=== PATIENT | male | born 1960 | race Caucasian/White ===

== ENCOUNTER 2019-05-23 05:44 | Inpatient (IN) | payer MEDICAID ==
[2019-05-23] VITALS (19 sets, daily range): BP systolic 86–125; BP diastolic 53–84
[~2019-05-23] VITALS: Ht 167.6 cm; Wt 100.4 kg
[2019-05-23 06:46] LABS: ABSOLUTE BASOPHILS 0.1 thou/uL (0.0-0.2); ABSOLUTE EOSINOPHILS 0.1 thou/uL (0.0-0.7); ABSOLUTE LYMPHOCYTES 0.8 thou/uL (0.8-5.3); ABSOLUTE MONOCYTES 1.4 thou/uL (0.0-1.2); ABSOLUTE NEUTROPHILS 6.4 thou/uL (1.6-8.1); BASOPHILS 0.6 %; EOSINOPHILS 1.1 %; HEMATOCRIT 35.9 % (42.0-52.0); HEMOGLOBIN 12.4 gm/dL (14.0-18.0); LYMPHOCYTES 8.7 %; MCH 34.2 pg (26.0-34.0); MCHC 34.6 g/dL (28.0-37.0); MCV 98.9 fL (80.0-100.0); MONOCYTES 16.1 %; MPV 9.8 fl. (7.2-11.1); NUCLEATED RBCS 0 /100WBC; POLYS 73.5 %; RBC 3.64 mil/uL (4.50-6.00); RDW-CV 17.2 % (10.5-14.5); WBC 8.7 thou/uL (4.0-11.0)
[2019-05-23 06:58] LABS: CREATININE 4.1 mg/dL (0.6-1.3); POTASSIUM 5.5 mmol/L (3.5-5.1)
[2019-05-23 07:01] LABS: URINE BILIRUBIN NEGATIVE (Negative); URINE BLOOD TRACE (Negative); URINE CLARITY CLEAR; URINE COLOR YELLOW; URINE GLUCOSE-RANDOM NEGATIVE (Negative); URINE KETONES TRACE (Negative); URINE LEUKOCYTES-REFLEX NEGATIVE (Negative); URINE NITRITE-REFLEX NEGATIVE (Negative); URINE PROTEIN NEGATIVE (Negative); URINE SPECIFIC GRAVITY 1.025 (1.005-1.030); URINE UROBILINOGEN 0.2 E.U./dl (0.2-1.0)
[2019-05-23 07:03] LABS: INR 1.4
[2019-05-23 07:09] LABS: TOTAL BILIRUBIN 5.1 mg/dL (<0.1-1.0); TOTAL PROTEIN 7.3 g/dL (6.4-8.2)
[2019-05-23 07:12] LABS: PLATELET ESTIMATE DECREASED
[2019-05-23 07:13] LABS: MACROCYTES 1+; PLATELET COUNT* 78 thou/uL (150-400)
[2019-05-23 07:36] LABS: BE -8.8 mmol/L (-2 to +3); pH 7.477 (7.340-7.450)
[2019-05-23 07:49] LABS: PO2 371.8 mmHg (75.0-100.0)
--- NOTE | 2019-05-23 09:18 | NUR ---
CENTRAL LINE PLACEMENT PERFORMED PER DR ALBARRAN LEFT JUGULAR, STERILE PROCEDURE; CONSENTS SIGNED PRIOR TO PROCEDURE BY DPKAR. CENTRAL LINE INSERTION CHECKLIST COMPLETE
--- NOTE | 2019-05-23 09:35 | NUR ---
RECEIVED NURSING REPORT FROM VIN PARSONS RN AT [address] IN REGARDS TO PT. MEDICATIONS NOT SCANNED IN EMAR VERSED, FENTANYL, SUCCINYLCHOLINE, AND PROPOFOL ARE DOCUMENTED ON STROKE SHEET, REFER TO STROKE SHEET FOR FURTHER DOCUMENTATION
[2019-05-23 09:54] LABS: BE -10.9 mmol/L (-2 to +3); pH 7.443 (7.340-7.450)
[2019-05-23 09:59] LABS: PO2 134.1 mmHg (75.0-100.0)
[2019-05-23] MEDS ORDERED: METFORMIN HCL500 M3 PO (10:26)
[2019-05-23] MEDS ORDERED: FUROSEMIDE 20 M20 MG PO (10:27)
[2019-05-23] MEDS ORDERED: PROTONIX40 M2 PO (10:27)
[2019-05-23] MEDS ORDERED: ONDANSETRON HCL4 M3 PO (10:28)
[2019-05-23] MEDS ORDERED: SPIRONOLACTONE25 MG PO (10:28)
[2019-05-23 11:26] LABS: PCO2 < 17.0 mmHg (35.0-45.0)
[2019-05-23 11:27] LABS: PCO2 < 17.0 mmHg (35.0-45.0)
[2019-05-23 12:34] LABS: CALCIUM 8.2 mg/dL (8.5-10.1); CREATININE 3.8 mg/dL (0.6-1.3); POTASSIUM 4.8 mmol/L (3.5-5.1)
--- NOTE | 2019-05-23 14:00 | NUR ---
PT DOES NOT HAVE COUGH,GAG OR SPONTANEOUS MOVEMENT. SEDATION TURNED OFF,RESTRAINTS REMAIN IN PLACE AT THIS TIME
--- NOTE | 2019-05-23 17:11 | NUR ---
PT RESTING IN BED,REPOSITIONED FREQUENTLY. PT DOES NOT APPEAR TO HAVE COUGH,GAG OR CORNEAL REFLEXES. NO SPONTANEOUS MOVEMENT. SEDATION OFF THIS AFTERNOON. PT ON VENT. TACHYPNEIC. DARK RED DRAINAGE FROM OG. BLEEDING FROM CENTRAL LINE,DRESSING INTACT.BRYANT CATH DRAINING CLEAR YELLOW URINE. EEG THIS AFTERNOON-REPORT DISCUSSED WITH FAMILY. BY DR ALMARAZ. FAMILY SEEMS TO UNDERSTAND SEVERITY OF CONDITION BUT WOULD LIKE TO CONTINUE TREATMENT AND FOR PT TO BE A FULL CODE "TO SEE HOW HE DOES FOR THE NEXT FEW DAYS"
--- NOTE | 2019-05-23 18:07 | NUR ---
INCREASED HR AND LABS DISCUSSED WITH DR HADLEY. ORDERS RECEIVED
[2019-05-23 22:19] LABS: BE -8.6 mmol/L (-2 to +3); PCO2 VENOUS 17.2 mmHg (41.0-51.0); PO2 VENOUS 135.9 mmHg (35.0-45.0)
[2019-05-24] VITALS (25 sets, daily range): BP systolic 89–129; BP diastolic 55–87
[2019-05-24 06:12] LABS: MAGNESIUM 1.8 mg/dL (1.8-2.4)
[2019-05-24 06:16] LABS: ALBUMIN 2.6 g/dL (3.4-5.0); CREATININE 3.9 mg/dL (0.6-1.3); POTASSIUM 5.4 mmol/L (3.5-5.1); TOTAL BILIRUBIN 6.1 mg/dL (<0.1-1.0); TOTAL PROTEIN 6.6 g/dL (6.4-8.2)
[2019-05-24 06:24] LABS: HEMATOCRIT 33.2 % (42.0-52.0); HEMOGLOBIN 11.4 gm/dL (14.0-18.0); MCH 33.5 pg (26.0-34.0); MCHC 34.3 g/dL (28.0-37.0); MCV 97.8 fL (80.0-100.0); MPV 9.7 fl. (7.2-11.1); RBC 3.4 mil/uL (4.50-6.00)
--- NOTE | 2019-05-24 07:00 | NUR ---
Pt making no purposeful movements, not following commands. Eyes open at times, but not tracking movements. Pupils ERRL. Pt moves Rt leg at times, especially when he appears to be fighting ventilator, coughing, or gagging. Pt also moved Rt arm at times later in shift. Not grasping for lines. VSS. Abdomen firm and round. HR 130s. Will continue to monitor.
[2019-05-24 09:02] LABS: APTT 43.3 Seconds (25.0-31.3); INR 1.4
--- NOTE | 2019-05-24 10:12 | CON ---
[address] [address] CONSULTATION Name: TREASUREELISABET Room: [address] IN M.R.#: [id number] Admission: 05/23/19 Attend Phys: Chanda Schaefer MD Discharge: Date of : 64 Report #: [id number] THIS REPORT FOR: //name// cc: MEKA Tee family physician/PCP MEKA - Nay family physician/PCP ~ THIS REPORT FOR: //name// CC: MEKA physician/PCP Chanda Schaefer DATE OF SERVICE: 05/23/2019 REQUESTING PHYSICIAN: Dr. Cobian. REASON FOR CONSULTATION: Chronic kidney disease. HISTORY OF PRESENT ILLNESS: The patient is a 59-year-old male with medical history significant for end-stage liver disease, history of recurrent ascites and weekly paracentesis at [facility], also has history of non-small lung cancer and chronic kidney disease, stage 4, presents to Emergency Room with altered mental status. Code stroke was initiated. The patient had to be intubated in Intensive Care Unit. He was hypotensive. PAST MEDICAL HISTORY: As I mentioned earlier. SOCIAL HISTORY: Unknown. MEDICATIONS: Prior to admission, unknown. REVIEW OF SYSTEMS: Unobtainable secondary to him being intubated. PHYSICAL EXAMINATION: GENERAL: He is intubated. VITAL SIGNS: His blood pressure is 92/62, his heart rate is 111, respiration rate 14, temperature 35.9. HEENT: Pupils are round. NECK: Supple. LUNGS: Decreased air movements. CARDIOVASCULAR: Tachycardia. ABDOMEN: Distended. Ascitic fluid is present. DIAGNOSTIC STUDIES: He had CT scan of abdomen done that revealed patchy consolidation within the posterior and inferior right lower lobe, which may represent atelectasis or pneumonia. Also, has dense consolidation within the dependent left lower lobe. He has large abdominal and pelvic ascites. Liver is atrophic. Kidneys [place] [address] CONSULTATION Name: ELISABET AMANDA Room: [address] IN [facility]#: [id number] Admission: 05/23/19 Attend Phys: Chanda Schaefer MD Discharge: Date of : 64 Report #: [id number] LABORATORY DATA: Revealed hemoglobin of 12.4 and platelet count 78,000. Serum sodium 129, potassium 5.5, chloride 97, carbon dioxide 15, BUN 4.2, creatinine 4.1, and lipase 400. ASSESSMENT: 1. Chronic kidney disease, stage 4. 2. End-stage liver disease. 3. Respiratory failure. 4. Hypertension. 5. Non-small lung cancer. PLAN: Provide support for his blood pressure and give him some fluids, but overall prognosis is very poor. The patient is not a dialysis candidate, and I think the hospice would be optimal care for him. <ELECTRONICALLY SIGNED> By: Jarrett Crespo MD 05/24/19 1012 1114 2110MD yazan Ocampo
--- NOTE | 2019-05-24 11:04 | CON ---
[address] [address] CONSULTATION Name: ELISABET AMANDA Room: [address] ADM IN M.R.#: [id number] Admission: 05/23/19 Attend Phys: Chanda Schaefer MD Discharge: Date of : 64 Report #: [id number] THIS REPORT FOR: //name// cc: MEKA Tee family physician/PCP MEKA - Nay family physician/PCP ~ THIS REPORT FOR: //name// CC: MEKA physician/PCP Chanda Schaefer DATE OF SERVICE: 05/23/2019 HISTORY OF PRESENT ILLNESS: This is a 59-year-old gentleman with past medical history significant for end-stage liver disease secondary to alcoholic cirrhosis, recently diagnosed lung cancer who was brought into the hospital after his daughter found him unconscious with gurgling noises at home. The patient was brought into the ER unconscious and since has been intubated. The GI service has been consulted for evaluation of his altered mental status as well as his history of cirrhosis. Since the patient is currently intubated, most of the history has been obtained from his daughter and records from his previous hospitalization. It appears that the patient was diagnosed with cirrhosis several years back, but has not been following up regularly like he should. We do know that he had been getting weekly paracentesis for his ascites at [facility] and he was also treated at some point for spontaneous bacterial peritonitis. Since his hospitalization, the patient's sedation has been completely turned off and he absolutely has no reflux at this time. The patient was evaluated by Neurology prior to my exam and they did remind that he does not have brainstem reflexes. PAST MEDICAL HISTORY: As mentioned above, end-stage liver disease, lung cancer. PAST SURGICAL HISTORY: None. SOCIAL HISTORY: Remote history of alcohol abuse and smoking. FAMILY HISTORY: No known family history of colon cancer or Plata related neoplasia. LABORATORY DATA: Sodium 131, potassium 4.8, chloride 100, bicarbonate 13, BUN 42, creatinine 3.8. Lactic acid 6.9, hemoglobin 12.4, hematocrit 35.9, platelet count 78, WBC count 8.7. INR 1.4. IMAGING: Abdomen and pelvis CT, this demonstrates large volume abdominal pelvic ascites, cirrhosis, paraesophageal gastric varices, cholelithiasis, and small [place] [address] CONSULTATION Name: AMANDAELISABET Room: [address]#: [id number] Admission: 05/23/19 Attend Phys: Chanda Schaefer MD Discharge: Date of : 64 Report #: [id number] PHYSICAL EXAMINATION: VITAL SIGNS: Blood pressure 95/71, pulse ox 100% on vent, pulse rate 109. GENERAL: The patient is intubated, is not responsive, and does not respond to pain in any way. HEENT: Sclerae are icteric. Small amount of blood being aspirated from the OG tube. SKIN: Icteric. Scattered spider angiomata are seen over the upper extremities. ABDOMEN: Distended and tense with positive fluid thrill and abdominal wall edema. Bowel sounds are present. EXTREMITIES: Also showed 2+ pitting edema. ASSESSMENT AND PLAN: A 59-year-old gentleman with history of cirrhosis complicated by ascites, varices and encephalopathy who was brought in after being found unconscious at home. Per neurology assessment, the patient does not have brainstem reflexes, which places for very poor prognosis over the next couple of days. Additionally, the patient does not have a great long-term prognosis either due to his history of decompensated liver disease as well as lung cancer. His poor prognosis was discussed in detail with family who were present at bedside. They are aware that no intervention can be undertaken at this time that would potentially reverse his medical condition. I would not recommend endoscopy, PPI, or octreotide drips at this time. Since he has no brainstem reflexes, I do not think this is secondary to hepatic encephalopathy, although he may have some component of it as well. However, I do not see any point in giving him lactulose either. The plan is to repeat his neurological examination tomorrow off of sedation for 24 hours and if he remains in the current condition, we will have to discuss goals of care with the family. Family appears to be on board with his current clinical status. Time spent in the Critical Care Unit [id number] with the patient and the patient's family 35 minutes. Thank you for this consultation. <ELECTRONICALLY SIGNED> By: Kian Posada MD 05/24/19 1104 1710 0025Kian Posada MD /nt
[2019-05-24 13:28] LABS: CREATININE 3.8 mg/dL (0.6-1.3); POTASSIUM 5.2 mmol/L (3.5-5.1)
--- NOTE | 2019-05-24 15:26 | NUR ---
FAMILY MADE DECISION TO GO COMFORT CARE. AWAITING DAUGHTER TO CALL BROTHERS TO HAVE THEM COME UP BEFORE EXTUBATING PATIENT. MEDICATIONS ORDERED FOR COMFORT PURPOSES. WILL EXTUBATE ONCE FAMILY IS READY. DTR REQUESTED TO SPEAK WITH DR HADLEY ALSO, CALLED AND HE WILL BE DOWN IN 15 MINS
--- NOTE | 2019-05-24 19:14 | NUR ---
REPORT GIVEN TO RN ON JSSI. PATIENT WILL BE TRANSPORTED TO ROOM 101 AFTER SHIFT REPORT. FAMILY AT BEDSIDE AND NOTIFIED. ALL QUESTIONS ANSWERED. PATIENT RESTING COMFORTABLY AT THIS TIME BUT REMAINS UNRESPONSIVE
[2019-05-25] VITALS: BP 94/76
[2019-05-25 04:00] VITALS: BP 99/62
[2019-05-25 07:58] VITALS: BP 100/55
--- NOTE | 2019-05-25 12:22 | NUR ---
PT.ON COMFORT CARE. SPOKE WITH DAUGHTER,MARILU AND SISTER,ROEL IN WAITING ROOM. ROEL IS GOING TO HAVE TO RETURN TO [place] TOMORROW,WHERE SHE LIVES. MARILU SAID PT.HAD BEEN STAYING WITH HER. HE HAD A GREAT DAY ON 05/22 AND WAS OUT AND ABOUT IN THE COMMUNITY WITH HIS FAMILY. THEN FOUND UNRESPONSIVE AM OF 05/23. THEY DECIDED TO MAKE HIM COMFORT CARE DUE TO HIS LIVER DISEASE AND METASTATIC LUNG DISEASE. DAUGHTER TEARFUL. SHE SAID SHE WILL NOT PUT HIM IN A NSG.HOME. SPOKE ABOUT HOSPICE HOUSES. SHE SAID IF HE DOESN'T PASS SOON, SHE WILL TAKE HIM HOME AND TAKE CARE OF HIM WITH HOSPICE. SHE SAID HER MOM (PTS EX ) AND HER YOUNGER SISTER LIVE A FEW APTS. DOWN AND WILL COME TO HELP HER IF NEEDED. CM WILL FOLLOW. EXPECTS WITHIN 24 HRS.
--- NOTE | 2019-05-25 14:42 | NUR ---
Nutrition: Pt on comfort care. Defer nutrition unless consulted.
[2019-05-25 15:42] VITALS: BP 141/71
--- NOTE | 2019-05-25 17:20 | NUR ---
PT IS UNRESPONSIVE. COMFORT CARE. VITALS STABLE. ON 2LOX. SUCTION PRN PER FAMILY REQUEST. CENTRAL LINE PATENT. MORPHINE AND ATIVAN GIVEN PRN. ADJUSTED IN BED AT FAMILY REQUEST. DIYA IN RIGHT NARE, NOT TO BE REMOVED. BRYANT IN PLACE. FAMILY AT BEDSIDE. WILL CONTINUE TO MONITOR.
--- NOTE | 2019-05-26 05:06 | NUR ---
ASSUMED CARE OF PT 05/25/19 AT APPROX 1930, PT ON COMFORT CARE, PT ON O2 20L JESÚS, BRYANT IN PLACE, PAIN AND ANXIETY MEDS GIVEN ORDERED, FAMILY AT BEDSIDE, WILL CONTINUE TO MONITOR.
[2019-05-26 08:10] VITALS: BP 113/70
--- NOTE | 2019-05-26 13:30 | NUR ---
PT.RESTING. EX AT BEDSIDE. MARILU NOT HERE AT THIS TIME. REAMINS ON COMFORT CARE. NURSING TOLD CM THAT DR. LYONS DID NOT FEEL PT.WOULD SURVIVE A TRANSFER TO HOME WITH HOSPICE. SHE FEELS PT.WILL IN 24-48 HRS.
--- NOTE | 2019-05-26 16:05 | NUR ---
PATIENT REMAINS ON COMFORT CARE. PATIENT REFUSED TO HAVE PATIENT TURNED. SCD'S IN PLACE AND HEELS ELEVATED/ CENTRAL LINE REMAINS SL. PRN MORPHINE/ATIVA/ROBINOL GIVEN ORDERED FOR COMFORT. PATIENT FAMILY AT BEDSIDE. VITALS THIS AM CHARTED.
--- NOTE | 2019-05-27 05:27 | NUR ---
ASSUMED CARE OF PT 05/26/19 AT APPROX 1930, PT ON COMFORT CARE, PT UNRESPONSIVE, ON O2 2L JESÚS, BRYANT IN PLACE. PAIN, ANXIETY AND SECRETION MEDS GIVEN ORDERED, ASSESSMENTS AND HOURLY ROUNDINGS COMPLETED, WILL CONTINUE TO MONITOR.
[2019-05-27 09:33] VITALS: BP 89/49
--- NOTE | 2019-05-27 13:56 | EKG ---
[place] [address] ELECTROCARDIOGRAM REPORT Name: ELISABET AMANDA Room: [address] ADM IN [facility]#: [id number] Admission: 05/23/19 Attend Phys: Chanda Schaefer, Discharge: Date of : 64 Date of Service: 05/23/19 0733 Report #: [id number] THIS REPORT FOR: cc: MEKA - Nay family physician/PCP MEKA - Nay family physician/PCP Giancarlo Stevenson MD [facility] ~ THIS REPORT FOR: //name// [facility] ED Test Date: 2019-05-23 Test Time: 07:33:15 Pat Name: ELISABET AMANDA Department: Room: [facility] Gender: M Block Saw Operator: TS : 1960 Requested By: Cathi Lincoln Order Number: [id number] MD: Giancarlo Stevenson Measurements Intervals [place] Rate: 103 P: 0 PA: 160 QRS: 43 QRSD: 101 T: 12 QT: 382 QTc: 500 Interpretive Statements Sinus tachycardia Probable left atrial enlargement Anterior infarct, old Prolonged QT interval No previous ECG available for comparison Electronically Signed On 05-24-2019 10:58:55 SHANK SKINNER by Giancarlo Stevenson [email or web address] <ELECTRONICALLY SIGNED> By: Giancarlo Stevenson MD, FAC 05/24/19 1058 Giancarlo Stevenson MD, [facility] /EPI
--- NOTE | 2019-05-27 15:30 | NUR ---
UNABLE TO SEE PTS DAUGHTER TODAY IN PERSON, SHE HAD TO LEAVE TO PICK DAUGHTER UP FROM SCHOOL. CALLED HER ON HER CELL TO DISCUSS GENERAL INPT.HOSPICE. EXPLAINED [facility] AND HOW IT WOULD ALLOW HIM TO STAY IN HOSPITAL LONGER AND GIVE HER MORE SUPPORT AFTER FATHER PASSES. SHE WOULD LIKE TO THINK ABOUT IT AND TALK TO CM IN PERSON TOMORROW.
--- NOTE | 2019-05-27 16:31 | NUR ---
PT CONTINUES ON COMFORT CARE AT THIS TIME. CASE MANAGEMENT TO DISCUSS HOSPICE EVAL AND TREAT WITH FAMILY. PT UNRESPONSIVE THIS SHIFT. NO OTHER CONCERNS AT THIS TIME. CLWR. WCTM.
[2019-05-27 20:00] VITALS: BP 77/44
--- NOTE | 2019-05-28 06:51 | NUR ---
PT ON COMFORT CARE. PASSED AT 05. SHOTBLASTER, NOTIFIED. DTR, [facility] CALLED. WAITING FOR FAMILY TO ARRIVE.
--- NOTE | 2019-05-28 11:39 | NUR ---
PT'S DAUGHTER TO HOSPITAL THIS AM TO COLLECT BELONGINGS. DISCUSSED WITH [facility] THAT PT IS NOT A CANDIDATE FOR [employer]. DISCUSSED WITH SON FOR HOME OF CHOICE. ANTICIPATE [facility] TO CASUAL SHOE INSPECTOR BODY THIS AFTERNOON. NO OTHER CONCERNS AT THIS TIME.
--- NOTE | 2019-05-28 12:19 | NUR ---
[facility] HERE AT THIS TIME TO DIABETES TERRITORY MANAGER BODY.
== END 2019-05-28 12:30 | DRG 871 ==
LOC: M.ERS 05:44 → M.ORTHSURG 07:54 → M.TBA-ER 07:54 → M.ICU 11:35 → M.ORTHSURG 05-24 19:46
PROVIDERS: Emergency Medicine; Emergency Medicine Emergency Medical Services; Internal Medicine; Internal Medicine Nephrology; ADMIT Internal Medicine
PROC: 5A1945Z Respiratory Ventilation, 24-96 Consecutive Hours (ICD-10-PCS; principal; 2019-05-23)
PROC: 0BH17EZ Insertion of Endotracheal Airway into Trachea, Via Natural or Artificial Opening (ICD-10-PCS; principal; 2019-05-23)
PROC: 02HV33Z Insertion of Infusion Device into Superior Vena Cava, Percutaneous Approach (ICD-10-PCS; principal; 2019-05-23)
DX: A41.9 Sepsis, unspecified organism (principal); J96.00 Acute respiratory failure, unspecified whether with hypoxia or hypercapnia; G93.41 Metabolic encephalopathy; J15.6 Pneumonia due to other Gram-negative bacteria; E87.1 Hypo-osmolality and hyponatremia; N17.9 Acute kidney failure, unspecified; N18.4 Chronic kidney disease, stage 4 (severe); E87.4 Mixed disorder of acid-base balance; G93.1 Anoxic brain damage, not elsewhere classified; T82.838A Hemorrhage due to vascular prosthetic devices, implants and grafts, initial encounter; R04.0 Epistaxis; E87.5 Hyperkalemia; K72.10 Chronic hepatic failure without coma; I12.9 Hypertensive chronic kidney disease with stage 1 through stage 4 chronic kidney disease, or unspecified chronic kidney disease; E11.22 Type 2 diabetes mellitus with diabetic chronic kidney disease; D69.6 Thrombocytopenia, unspecified; K70.31 Alcoholic cirrhosis of liver with ascites; G25.81 Restless legs syndrome; Z51.5 Encounter for palliative care; Y84.8 Other medical procedures as the cause of abnormal reaction of the patient, or of later complication, without mention of misadventure at the time of the procedure; Y92.230 Patient room in hospital as the place of occurrence of the external cause; Z79.899 Other long term (current) drug therapy; Z79.84 Long term (current) use of oral hypoglycemic drugs; Z85.118 Personal history of other malignant neoplasm of bronchus and lung